=== PATIENT | female | born 1935 | race Two or more races ===

== ENCOUNTER 2016-03-03 15:51 | Inpatient (IN) | payer OTHER, MEDICARE ==
[~2016-03-03] VITALS: Ht 157.5 cm; Wt 54.4 kg
[2016-03-03] MEDS ORDERED: ENALAPRIL1.25 MG/ML IV (15:53)
[2016-03-03 16:08] VITALS: BP 196/75
[2016-03-03 16:35] LABS: MEAN CORPUSCULAR HEMOGLOBIN 30.8 PG (27.0-31.0); MEAN CORPUSCULAR HGB CONC 33.3 G/DL (32.0-36.0); MEAN CORPUSCULAR VOLUME 92 FL (80-99); MEAN PLATELET VOLUME 6.3 FL (6.5-10.1); PLATELET COUNT 328 K/UL (150-450); RED BLOOD COUNT 4.45 M/UL (4.20-5.40); RED CELL DISTRIBUTION WIDTH 11.7 % (11.6-14.8); WHITE BLOOD COUNT 18.7 K/UL (4.8-10.8)
--- NOTE | 2016-03-03 16:40 | Emergency Room Report ---
History of Present Illness General Chief Complaint: Generalized Weakness Source: Patient, Family Member, EMS Present Illness HPI Patient was brought in with complaints of fever and weakness Patient herself appears to have some rambling of thought is not able to focus and give appropriate history family reports that the patient had a 102 temperature at home Has been more weak than usual Patient was shopping with family when she felt more weak was unable to ambulate And was brought to the emergency room Here denies any chest pain or shortness of breath denies any back or flank pain And was not quite sure why she was here Given her mentation history of present illness was somewhat limited Allergies: Coded Allergies: No Known Allergies (Unverified , 03/03/16) Patient History Past Medical History: see triage record Pertinent Family History: none Reviewed Nursing Documentation: PMH: Agreed, PSxH: Agreed Nursing Documentation-PM Past Medical History: No History, Except For Hx Hypertension: Yes Review of Systems All Other Systems: negative except mentioned in HPI Physical Exam Vital Signs Date Time Temp Pulse Resp B/P Pulse Ox O2 Delivery O2 Flow Rate FiO2 03/03/16 15:49 102.0 136 18 199/102 95 Room Air Sp02 EP Interpretation: reviewed, normal General Appearance: other - Appear somewhat agitated Head: normocephalic, atraumatic Eyes: bilateral eye EOMI, bilateral eye PERRL ENT: hearing grossly normal, normal pharynx, TMs + canals normal, uvula midline Neck: full range of motion, supple, no meningismus, no bony tend Respiratory: lungs clear, normal breath sounds, no rhonchi, no respiratory distress, no retraction, no accessory muscle use Cardiovascular #1: no edema, no gallop, no JVD, no murmur, tachycardia Gastrointestinal: normal bowel sounds, non tender, soft, no mass, no organomegaly, non-distended, no guarding, no hernia, no pulsatile mass, no rebound Genitourinary: no CVA tenderness Musculoskeletal: normal inspection Neurologic: oriented x3, responsive, configuration developer III-XII nml as tested, motor strength/ tone normal, sensory intact Psychiatric: mood/affect normal Skin: normal color, no rash, warm/dry, palpation normal Lymphatic: normal inspection, no adenopathy Medical Decision Making Diagnostic Impression: Primary Impression: Sepsis Additional Impression: UTI (urinary tract infection) ER Course Patient present with concerning findings for sepsis versus severe sepsis Patient has done well has signs of UTI lactic acid was also mildly elevated Patient was provided with broad-spectrum antibiotics and admitted for further inpatient care Labs Test 03/03/16 16:00 03/03/16 16:36 03/03/16 18:02 03/04/16 06:20 White Blood Count 18.7 K/UL (4.8-10.8) 22.6 K/UL (4.8-10.8) Red Blood Count 4.45 M/UL (4.20-5.40) 4.09 M/UL (4.20-5.40) Hemoglobin 13.7 G/DL (12.0-16.0) 12.8 G/DL (12.0-16.0) Hematocrit 41.1 % (37.0-47.0) 37.8 % (37.0-47.0) Mean Corpuscular Volume 92 FL (80-99) 92 FL (80-99) Mean Corpuscular Hemoglobin 30.8 PG (27.0-31.0) 31.2 PG (27.0-31.0) Mean Corpuscular Hemoglobin Concent 33.3 G/DL (32.0-36.0) 33.7 G/DL (32.0-36.0) Red Cell Distribution Width 11.7 % (11.6-14.8) 11.8 % (11.6-14.8) Platelet Count 328 K/UL (150-450) 300 K/UL (150-450) Mean Platelet Volume 6.3 FL (6.5-10.1) 6.7 FL (6.5-10.1) Neutrophils (%) (Auto) % (45.0-75.0) % (45.0-75.0) Lymphocytes (%) (Auto) % (20.0-45.0) % (20.0-45.0) Monocytes (%) (Auto) % (1.0-10.0) % (1.0-10.0) Eosinophils (%) (Auto) % (0.0-3.0) % (0.0-3.0) Basophils (%) (Auto) % (0.0-2.0) % (0.0-2.0) Differential Total Cells Counted 100 100 Neutrophils % (Manual) 75 % (45-75) 85 % (45-75) Lymphocytes % (Manual) 10 % (20-45) 8 % (20-45) Monocytes % (Manual) 7 % (1-10) 5 % (1-10) Eosinophils % (Manual) 0 % (0-3) 0 % (0-3) Basophils % (Manual) 0 % (0-2) 0 % (0-2) Band Neutrophils 8 % (0-8) 2 % (0-8) Platelet Estimate Adequate Adequate Platelet Morphology Normal Normal Anisocytosis 1+ Prothrombin Time 10.0 SEC (9.30-11.50) Prothromb Time International Ratio 1.0 (0.9-1.1) Activated Partial Thromboplast Time 26 SEC (23-33) Sodium Level 138 mEQ/L (135-145) 143 mEQ/L (135-145) Potassium Level 3.8 mEQ/L (3.4-4.9) 4.4 mEQ/L (3.4-4.9) Chloride Level 97 mEQ/L (98-107) 104 mEQ/L (98-107) Carbon Dioxide Level 25 mEQ/L (20-30) 25 mEQ/L (20-30) Anion Gap 16 (5-15) 14 (5-15) Blood Urea Nitrogen 14 mg/dL (7-23) 15 mg/dL (7-23) Creatinine 0.6 mg/dL (0.5-0.9) 0.7 mg/dL (0.5-0.9) Estimat Glomerular Filtration Rate mL/min (>60) mL/min (>60) Glucose Level 101 mg/dL (74-106) 133 mg/dL (74-106) Lactic Acid Level 2.30 mmol/L (0.66-2.22) 2.30 mmol/L (0.66-2.22) Calcium Level 9.1 mg/dL (8.6-10.2) 8.4 mg/dL (8.6-10.2) Phosphorus Level 2.0 mg/dL (2.5-4.8) Magnesium Level 1.7 mg/dL (1.7-2.5) Total Bilirubin 0.2 mg/dL (0.0-1.2) 0.4 mg/dL (0.0-1.2) Aspartate Amino Transf (AST/SGOT) 14 U/L (5-40) 16 U/L (5-40) Alanine Aminotransferase (ALT/SGPT) 9 U/L (3-33) 6 U/L (3-33) Alkaline Phosphatase 103 U/L (35-104) 81 U/L (35-104) Total Creatine Kinase 172 U/L (26-140) Creatine Kinase MB < 1.5 ng/mL (< 3.8) Creatine Kinase MB Relative Index Troponin I < 0.30 ng/mL (<=0.30) Pro-B-Type Natriuretic Peptide 630 pg/mL (0-450) Total Protein 7.2 g/dL (6.6-8.7) 5.8 g/dL (6.6-8.7) Albumin 4.0 g/dL (3.5-5.2) 3.0 g/dL (3.5-5.2) Globulin 3.2 g/dL 2.8 g/dL Albumin/Globulin Ratio 1.2 (1.0-2.7) 1.0 (1.0-2.7) Lipase 32 U/L (< 60) Urine Color Pale yellow Urine Appearance Clear Urine pH 6 (4.5-8.0) Urine Specific [place] 1.010 (1.005-1.035) Urine Protein 2+ (NEGATIVE) Urine Glucose (UA) Negative (NEGATIVE) Urine Ketones Negative (NEGATIVE) Urine Occult Blood 1+ (NEGATIVE) Urine Nitrite Positive (NEGATIVE) Urine Bilirubin Negative (NEGATIVE) Urine Urobilinogen Normal MG/DL (0.0-1.0) Urine Leukocyte Esterase 1+ (NEGATIVE) Urine RBC 2-4 /HPF (0 - 2) Urine WBC 5-10 /HPF (0 - 2) Urine Squamous Epithelial Cells Few /LPF (NONE/OCC) Urine Bacteria Many /HPF (NONE) Red Blood Cell Morphology Normal Rhythm Strip Diag. Results EP Interpretation: yes Rate: 109 Rhythm: no PVC's, no ectopy, other - sinus tach Chest X-Ray Diagnostic Results EP Interpretation: Yes Findings: no pneumothorax, other - Small right-sided effusion/atelectasis, borderline cardiomegaly Number of Views: 1 Last Vital Signs Date Time Temp Pulse Resp B/P Pulse Ox O2 Delivery O2 Flow Rate FiO2 03/03/16 16:08 101.1 122 26 196/75 97 Room Air Status: improved Disposition: ADMITTED INPATIENT Condition: Serious SHONA FELTON D.O. Mar 03, 2016 16:40
[2016-03-03 16:58] LABS: APPEARANCE,URINE CLEAR; KETONES,URINE NEGATIVE (NEGATIVE); LEUKOCYTE ESTERASE ,URINE 1+ (NEGATIVE); NITRITE,URINE POSITIVE (NEGATIVE); PH,URINE 6 (4.5-8.0); PROTEIN,URINE 2+ (NEGATIVE); UROBILINOGEN,URINE NORMAL MG/DL (0.0-1.0)
[2016-03-03 17:02] LABS: BACTERIA,URINE MANY /HPF; SQUAMOUS EPITHELIAL CELL,UR FEW /LPF (NONE/OCC)
[2016-03-03 17:03] LABS: TROPONIN I < 0.30 ng/mL (<=0.30)
[2016-03-03 17:07] LABS: ALANINE AMINOTRANSFERASE 9 U/L (3-33); ALBUMIN/GLOBULIN RATIO 1.2 (1.0-2.7); ANION GAP 16 (5-15); ASPARTATE AMINO TRANSFERASE 14 U/L (5-40); CALCIUM 9.1 mg/dL (8.6-10.2); CARBON DIOXIDE 25 mEQ/L (20-30); CHLORIDE 97 mEQ/L (98-107); CREATININE 0.6 mg/dL (0.5-0.9); HEMOLYSIS 4; LIPASE 32 U/L (< 60); MAGNESIUM 1.7 mg/dL (1.7-2.5); POTASSIUM 3.8 mEQ/L (3.4-4.9); SODIUM 138 mEQ/L (135-145); TOTAL PROTEIN 7.2 g/dL (6.6-8.7)
[2016-03-03 17:10] LABS: REFLEX LACTIC ACID YES OR NO YES
[2016-03-03 17:17] LABS: CKMB < 1.5 ng/mL (< 3.8)
[2016-03-03 17:37] LABS: BAND NEUTROPHILS % (MANUAL) 8 % (0-8); LYMPHOCYTES % (MANUAL) 10 % (20-45); NEUTROPHILS % (MANUAL) 75 % (45-75); TOTAL CELLS COUNTED 100
[2016-03-03 17:38] LABS: ANISOCYTOSIS 1+; BASOPHILS % (MANUAL) 0 % (0-2); EOSINOPHILS % (MANUAL) 0 % (0-3); PLATELET ESTIMATE ADEQUATE; PLATELET MORPHOLOGY NORMAL
[2016-03-03 18:00] VITALS: BP 138/51
[2016-03-03] MEDS ORDERED: Morphine Sulfate 2mg/ml Inj IVP PRN (18:00)
[2016-03-03] MEDS ORDERED: DuoNeb 0.5-3(2.5)mg/3ml neb HHN PRN (18:00)
[2016-03-03] MEDS ORDERED: Miralax 17gm pkt ORAL PRN (18:00)
--- NOTE | 2016-03-03 18:02 | History and Physical ---
History of Present Illness General Date patient seen: Mar 03, 2016 Reason for Hospitalization: Generalized Weakness Present Illness HPI 8 year old with hx of Dementia and HTN brought in by paramedics with complaints of fever and weakness Patient herself appears to be confused and not able to focus and give appropriate history. Patient daughter reported that the patient had a 102 temperature at home She has been more weak than usual. Patient was shopping with family when she felt more weak was unable to ambulate She was febrile and tachycardic and confused in ER. She is being admitted to Telemetry for further evaluation Allergies: Coded Allergies: No Known Allergies (Unverified , 03/03/16) Medication History Scheduled Enalaprilat* (Enalapril*), Unknown Dose IV EVERY 6 HOURS, (Reported) Patient History Healthcare decision maker Resuscitation status Advanced Directive on File Past Medical/Surgical History Past Medical/Surgical History: (1) HTN (hypertension) (2) Dementia Review of Systems All Other Systems: negative except mentioned in HPI Physical Exam Lines, tubes and drains: peripheral HEENT: normocephalic, atraumatic Neck: non-tender, normal alignment Cardiovascular/Chest: normal peripheral pulses, normal rate Abdomen: normal bowel sounds Genitourinary/Rectal: normal genital exam, normal rectal exam Extremities: normal range of motion, non-tender Neurologic: sand bobber II-XII grossly normal Last 24 Hour Vital Signs Date Time Temp Pulse Resp B/P Pulse Ox O2 Delivery O2 Flow Rate FiO2 03/03/16 16:08 101.1 122 26 196/75 97 Room Air 03/03/16 15:49 102.0 136 18 199/102 95 Room Air Laboratory Tests Test 03/03/16 16:00 03/03/16 16:36 White Blood Count 18.7 K/UL (4.8-10.8) H Red Blood Count 4.45 M/UL (4.20-5.40) Hemoglobin 13.7 G/DL (12.0-16.0) Hematocrit 41.1 % (37.0-47.0) Mean Corpuscular Volume 92 FL (80-99) Mean Corpuscular Hemoglobin 30.8 PG (27.0-31.0) Mean Corpuscular Hemoglobin Concent 33.3 G/DL (32.0-36.0) Red Cell Distribution Width 11.7 % (11.6-14.8) Platelet Count 328 K/UL (150-450) Mean Platelet Volume 6.3 FL (6.5-10.1) L Neutrophils (%) (Auto) % (45.0-75.0) Lymphocytes (%) (Auto) % (20.0-45.0) Monocytes (%) (Auto) % (1.0-10.0) Eosinophils (%) (Auto) % (0.0-3.0) Basophils (%) (Auto) % (0.0-2.0) Differential Total Cells Counted 100 Neutrophils % (Manual) 75 % (45-75) Lymphocytes % (Manual) 10 % (20-45) L Monocytes % (Manual) 7 % (1-10) Eosinophils % (Manual) 0 % (0-3) Basophils % (Manual) 0 % (0-2) Band Neutrophils 8 % (0-8) Platelet Estimate Adequate Platelet Morphology Normal Anisocytosis 1+ Prothrombin Time 10.0 SEC (9.30-11.50) Prothromb Time International Ratio 1.0 (0.9-1.1) Activated Partial Thromboplast Time 26 SEC (23-33) Sodium Level 138 mEQ/L (135-145) Potassium Level 3.8 mEQ/L (3.4-4.9) Chloride Level 97 mEQ/L (98-107) L Carbon Dioxide Level 25 mEQ/L (20-30) Anion Gap 16 (5-15) H Blood Urea Nitrogen 14 mg/dL (7-23) Creatinine 0.6 mg/dL (0.5-0.9) Estimat Glomerular Filtration Rate mL/min (>60) Glucose Level 101 mg/dL (74-106) Lactic Acid Level 2.30 mmol/L (0.66-2.22) H Calcium Level 9.1 mg/dL (8.6-10.2) Phosphorus Level 2.0 mg/dL (2.5-4.8) L Magnesium Level 1.7 mg/dL (1.7-2.5) Total Bilirubin 0.2 mg/dL (0.0-1.2) Aspartate Amino Transf (AST/SGOT) 14 U/L (5-40) Alanine Aminotransferase (ALT/SGPT) 9 U/L (3-33) Alkaline Phosphatase 103 U/L (35-104) Total Creatine Kinase 172 U/L (26-140) H Creatine Kinase MB < 1.5 ng/mL (< 3.8) Creatine Kinase MB Relative Index Troponin I < 0.30 ng/mL (<=0.30) Pro-B-Type Natriuretic Peptide 630 pg/mL (0-450) H Total Protein 7.2 g/dL (6.6-8.7) Albumin 4.0 g/dL (3.5-5.2) Globulin 3.2 g/dL Albumin/Globulin Ratio 1.2 (1.0-2.7) Lipase 32 U/L (< 60) Urine Color Pale yellow Urine Appearance Clear Urine pH 6 (4.5-8.0) Urine Specific [place] 1.010 (1.005-1.035) Urine Protein 2+ (NEGATIVE) H Urine Glucose (UA) Negative (NEGATIVE) Urine Ketones Negative (NEGATIVE) Urine Occult Blood 1+ (NEGATIVE) H Urine Nitrite Positive (NEGATIVE) H Urine Bilirubin Negative (NEGATIVE) Urine Urobilinogen Normal MG/DL (0.0-1.0) Urine Leukocyte Esterase 1+ (NEGATIVE) H Urine RBC 2-4 /HPF (0 - 2) H Urine WBC 5-10 /HPF (0 - 2) H Urine Squamous Epithelial Cells Few /LPF (NONE/OCC) Urine Bacteria Many /HPF (NONE) H Height (Feet): 5 Height (Inches): 2.00 Weight (Pounds): 120 Medications Current Medications Medications (Trade) Dose Ordered Sig/Марина Route PRN Reason Start Time Stop Time Status Last Admin Dose Admin Ceftriaxone Sodium 1 gm/ Sodium Chloride 50 ml @ 100 mls/hr ONCE ONCE IVPB 03/03/16 17:45 03/03/16 18:14 03/03/16 17:54 Sodium Chloride (Sodium Chloride 1000ml bag) 1,000 ml @ 999 mls/hr Q1H1M ONCE IV 03/03/16 17:45 03/03/16 18:45 03/03/16 17:53 Assessment/Plan Problem List: (1) Acute encephalopathy ICD Codes: G93.40 - Encephalopathy, unspecified SNOMED: 5736935 (2) Sepsis ICD Codes: A41.9 - Sepsis, unspecified organism SNOMED: 85121638 (3) Episode of generalized weakness ICD Codes: R53.1 - Weakness SNOMED: 00016485 (4) HTN (hypertension) ICD Codes: I10 - Essential (primary) hypertension SNOMED: 70043387 (5) Dementia ICD Codes: F03.90 - Unspecified dementia without behavioral disturbance SNOMED: 23107845 Assessment/Plan IV antibiotics IV hydration check cultures tachycardia most likely secondary to fever and sepsis dvt prophylaxis monitor bp EDISON RAMIREZ Mar 03, 2016 18:02
[2016-03-03] MEDS ORDERED: Nitroglycerin Subl 0.4mg tab (Bottle Of 25) SL PRN (18:30)
[2016-03-03 20:06] VITALS: BP 132/60
[2016-03-03] MEDS: Heparin 5000 units/ml inj SUBQ SCH (21:50)
[2016-03-03] MEDS ORDERED: Vancomycin 750 MG in D5W 250 ML IVPB SCH (22:00)
[2016-03-04] VITALS (11 sets, daily range): BP systolic 91–153; BP diastolic 38–73
[2016-03-04 07:07] LABS: MEAN CORPUSCULAR HEMOGLOBIN 31.2 PG (27.0-31.0); MEAN CORPUSCULAR HGB CONC 33.7 G/DL (32.0-36.0); MEAN CORPUSCULAR VOLUME 92 FL (80-99); MEAN PLATELET VOLUME 6.7 FL (6.5-10.1); PLATELET COUNT 300 K/UL (150-450); RED BLOOD COUNT 4.09 M/UL (4.20-5.40); RED CELL DISTRIBUTION WIDTH 11.8 % (11.6-14.8)
[2016-03-04 07:10] LABS: WHITE BLOOD COUNT 22.6 K/UL (4.8-10.8)
[2016-03-04 07:16] LABS: ALANINE AMINOTRANSFERASE 6 U/L (3-33); ANION GAP 14 (5-15); ASPARTATE AMINO TRANSFERASE 16 U/L (5-40); CALCIUM 8.4 mg/dL (8.6-10.2); CARBON DIOXIDE 25 mEQ/L (20-30); CHLORIDE 104 mEQ/L (98-107); CREATININE 0.7 mg/dL (0.5-0.9); HEMOLYSIS 2; POTASSIUM 4.4 mEQ/L (3.4-4.9); SODIUM 143 mEQ/L (135-145); TOTAL PROTEIN 5.8 g/dL (6.6-8.7)
[2016-03-04] MEDS: Heparin 5000 units/ml inj SUBQ SCH ×2 (08:52→20:39)
[2016-03-04 10:05] LABS: BAND NEUTROPHILS % (MANUAL) 2 % (0-8); BASOPHILS % (MANUAL) 0 % (0-2); EOSINOPHILS % (MANUAL) 0 % (0-3); LYMPHOCYTES % (MANUAL) 8 % (20-45); NEUTROPHILS % (MANUAL) 85 % (45-75); PLATELET ESTIMATE ADEQUATE; PLATELET MORPHOLOGY NORMAL; TOTAL CELLS COUNTED 100
--- NOTE | 2016-03-04 10:21 | Diagnostic Imaging Report ---
Indication: DYSPNEA Technique: One view of the chest Comparison: 03/03/2016 Findings: There is increasing consolidation at the right lateral lung base. There may be a small amount of pleural fluid now present on the right. The remainder the lungs and pleural spaces are clear. Heart size is normal. Impression: Increasing right lateral basilar infiltrate, over one day, suspect pneumonia Possible developing small right pleural effusion
--- NOTE | 2016-03-04 12:28 | Pulmonology Progress Note ---
Assessment/Plan Problems: (1) Sepsis (2) Acute encephalopathy (3) Episode of generalized weakness (4) HTN (hypertension) (5) Dementia Assessment/Plan improving check GNR in urine monitor electrolytes dvt prophylaxis ID evaluaiton Subjective ROS Limited/Unobtainable: No Constitutional: Reports: no symptoms HEENT: Repors: no symptoms Respiratory: Reports: no symptoms Cardiovascular: Reports: no symptoms Allergies: Coded Allergies: No Known Allergies (Unverified , 03/03/16) Objective Last 24 Hour Vital Signs Date Time Temp Pulse Resp B/P Pulse Ox O2 Delivery O2 Flow Rate FiO2 03/04/16 11:55 97.3 75 18 106/57 100 Room Air 03/04/16 08:00 97.7 74 18 96/57 100 Nasal Cannula 2.0 03/04/16 08:00 74 03/04/16 06:32 97.7 81 20 107/55 Nasal Cannula 2.0 03/04/16 03:22 109 122/48 03/04/16 03:22 100.2 109 20 94 Nasal Cannula 2.0 03/04/16 01:51 120 20 94/38 94 03/04/16 00:44 126 20 91/40 94 03/04/16 00:43 126 20 91/40 03/04/16 00:36 98.2 140 22 148/71 94 Nasal Cannula 03/04/16 00:23 133 03/03/16 23:48 142 20 94 Nasal Cannula 3.0 32 03/03/16 23:41 60 22 Nasal Cannula 3.0 03/03/16 23:41 Nasal Cannula 3.0 32 03/03/16 23:41 60 22 92 Nasal Cannula 3.0 32 03/03/16 23:41 92 Nasal Cannula 3.0 32 03/03/16 22:53 81 03/03/16 20:20 98.3 03/03/16 20:15 99.5 03/03/16 20:07 99.5 105 17 132/60 98 Room Air 03/03/16 20:06 99.5 105 17 132/60 98 Room Air 03/03/16 20:00 103 03/03/16 18:00 101.1 115 24 138/51 97 Room Air 03/03/16 16:08 101.1 122 26 196/75 97 Room Air 03/03/16 15:49 102.0 136 18 199/102 95 Room Air Intake and Output 03/03/16 03/04/16 19:00 07:00 Intake Total 300 ml Output Total 100 ml Balance 200 ml Intake Oral 200 ml IV Total 100 ml Output Urine Total 100 ml # Voids 3 # Bowel Movements 1 General Appearance: cachetic HEENT: normocephalic, atraumatic Respiratory/Chest: chest wall non-tender, lungs clear Cardiovascular: normal peripheral pulses, normal rate Abdomen: normal bowel sounds, soft, non tender Genitourinary: normal external genitalia Extremities: no cyanosis Skin: no rash, no lesions Microbiology Date/Time Source Procedure Growth Status 03/03/16 16:36 Urine,Clean Catch Urine Culture - Preliminary Gram Negative Bacillus 1 Resulted Laboratory Tests 03/03/16 16:00: White Blood Count 18.7H, Red Blood Count 4.45, Hemoglobin 13.7, Hematocrit 41.1 , Mean Corpuscular Volume 92, Mean Corpuscular Hemoglobin 30.8, Mean Corpuscular Hemoglobin Concent 33.3, Red Cell Distribution Width 11.7, Platelet Count 328, Mean Platelet Volume 6.3L, Neutrophils (%) (Auto) , Lymphocytes (%) ( Auto) , Monocytes (%) (Auto) , Eosinophils (%) (Auto) , Basophils (%) (Auto) , Differential Total Cells Counted 100, Neutrophils % (Manual) 75, Lymphocytes % ( Manual) 10L, Monocytes % (Manual) 7, Eosinophils % (Manual) 0, Basophils % ( Manual) 0, Band Neutrophils 8, Platelet Estimate Adequate, Platelet Morphology Normal, Anisocytosis 1+, Prothrombin Time 10.0, Prothromb Time International Ratio 1.0, Activated Partial Thromboplast Time 26, Sodium Level 138, Potassium Level 3.8, Chloride Level 97L, Carbon Dioxide Level 25, Anion Gap 16H, Blood Urea Nitrogen 14, Creatinine 0.6, Estimat Glomerular Filtration Rate , Glucose Level 101, Lactic Acid Level 2.30H, Calcium Level 9.1, Phosphorus Level 2.0L, Magnesium Level 1.7, Total Bilirubin 0.2, Aspartate Amino Transf (AST/SGOT) 14, Alanine Aminotransferase (ALT/SGPT) 9, Alkaline Phosphatase 103, Total Creatine Kinase 172H, Creatine Kinase MB < 1.5, Creatine Kinase MB Relative Index , Troponin I < 0.30, Pro-B-Type Natriuretic Peptide 630H, Total Protein 7.2, Albumin 4.0, Globulin 3.2, Albumin/Globulin Ratio 1.2, Lipase 32 03/03/16 16:36: Urine Color Pale yellow, Urine Appearance Clear, Urine pH 6, Urine Specific [place] 1.010, Urine Protein 2+H, Urine Glucose (UA) Negative, Urine Ketones Negative, Urine Occult Blood 1+H, Urine Nitrite PositiveH, Urine Bilirubin Negative, Urine Urobilinogen Normal, Urine Leukocyte Esterase 1+H, Urine RBC 2- 4H, Urine WBC 5-10H, Urine Squamous Epithelial Cells Few, Urine Bacteria ManyH 03/03/16 18:02: Lactic Acid Level 2.30H 03/04/16 06:20: White Blood Count 22.6*H, Red Blood Count 4.09L, Hemoglobin 12.8, Hematocrit 37.8, Mean Corpuscular Volume 92, Mean Corpuscular Hemoglobin 31.2H, Mean Corpuscular Hemoglobin Concent 33.7, Red Cell Distribution Width 11.8, Platelet Count 300, Mean Platelet Volume 6.7, Neutrophils (%) (Auto) , Lymphocytes (%) ( Auto) , Monocytes (%) (Auto) , Eosinophils (%) (Auto) , Basophils (%) (Auto) , Differential Total Cells Counted 100, Neutrophils % (Manual) 85H, Lymphocytes % (Manual) 8L, Monocytes % (Manual) 5, Eosinophils % (Manual) 0, Basophils % ( Manual) 0, Band Neutrophils 2, Platelet Estimate Adequate, Platelet Morphology Normal, Sodium Level 143, Potassium Level 4.4, Chloride Level 104, Carbon Dioxide Level 25, Anion Gap 14, Blood Urea Nitrogen 15, Creatinine 0.7, Estimat Glomerular Filtration Rate , Glucose Level 133H, Calcium Level 8.4L, Total Bilirubin 0.4, Aspartate Amino Transf (AST/SGOT) 16, Alanine Aminotransferase ( ALT/SGPT) 6, Alkaline Phosphatase 81, Total Protein 5.8L, Albumin 3.0L, Globulin 2.8, Albumin/Globulin Ratio 1.0, Red Blood Cell Morphology Normal Current Medications Medications (Trade) Dose Ordered Sig/Марина Route PRN Reason Start Time Stop Time Status Last Admin Dose Admin Acetaminophen (Tylenol) 650 mg Q4H PRN ORAL T>100.5 03/03/16 18:00 04/02/16 17:59 03/03/16 19:16 Albuterol/ Ipratropium 3 ml 3 ml Q4H PRN HHN Shortness of Breath 03/03/16 18:00 03/08/16 17:59 03/03/16 23:40 Cefepime HCl 2 gm/ Sodium Chloride 100 ml @ 100 mls/hr QHS IV 03/03/16 21:00 03/10/16 20:59 03/03/16 21:49 Heparin Sodium (Porcine) (Heparin 5000 units/ml) 5,000 units EVERY 12 HOURS SUBQ 03/03/16 21:00 04/02/16 20:59 03/04/16 08:52 Morphine Sulfate (Morphine Sulfate) 2 mg Q4H PRN IVP Moderate Pain (Pain Scale 4-6) 03/03/16 18:00 03/10/16 17:59 Nitroglycerin (Ntg) 0.4 mg Q5MIN X 3 DOSES PRN SL Prn Chest Pain 03/03/16 18:30 04/02/16 18:29 Ondansetron HCl (Zofran) 4 mg Q6H PRN IVP Nausea & Vomiting 03/03/16 18:00 04/02/16 17:59 Polyethylene Glycol (Miralax) 17 gm DAILYPRN PRN ORAL Constipation 03/03/16 18:00 04/02/16 17:59 Temazepam (Restoril) 15 mg HSPRN PRN ORAL Insomnia 03/03/16 21:00 03/10/16 20:59 Vancomycin HCl (Vanco rx to dose) 1 ea DAILY PRN MISC . 03/03/16 19:00 04/02/16 18:59 Vancomycin HCl/ Dextrose (Vancomycin/D5W 250ml) 250 ml @ 167 mls/hr Q24H IVPB 03/03/16 22:00 03/08/16 21:59 03/04/16 00:07 EDISON RAMIREZ Mar 04, 2016 12:28
--- NOTE | 2016-03-04 13:14 | Consultation ---
Consult Note Consult Note ( ID Dic # [id number]) CESAR BAIELY M.D. Mar 04, 2016 13:14
[2016-03-04] MEDS ORDERED: Nitroglycerin Subl 0.4mg tab (Bottle Of 25) SL PRN (14:00)
[2016-03-04] MEDS ORDERED: DuoNeb 0.5-3(2.5)mg/3ml neb HHN PRN (14:00)
[2016-03-04] MEDS ORDERED: Morphine Sulfate 2mg/ml Inj IVP PRN (14:00)
[2016-03-04] MEDS ORDERED: Miralax 17gm pkt ORAL PRN (18:00)
[2016-03-04] MEDS ORDERED: Vancomycin 750 MG in D5W 250 ML IVPB SCH (22:00)
--- NOTE | 2016-03-05 00:18 | Consultation ---
DATE OF CONSULTATION: INFECTIOUS DISEASE CONSULTATION CONSULTING PHYSICIAN: Jesse Marx M.D. REFERRING PHYSICIAN: Yina Huddleston M.D. REASON FOR CONSULTATION: Evaluation of the patient for sepsis, bacteremia and antibiotic management. HISTORY OF PRESENT ILLNESS: The patient is an 80-year-old female with multiple medical problems, dementia, and hypertension, who came to the hospital because of fever and general weakness. An Infectious Disease consultation has been requested for further evaluation of the patient. At the time of admission, the patient was found to have fever of 102 degrees and now the patient's urine culture is growing gram-negative rods. An Infectious Disease consultation has been requested for further evaluation of the patient and antibiotic management. PAST MEDICAL HISTORY: 1. Hypertension. 2. Dementia. 3. Hearing loss. 4. History of chronic constipation. MEDICATIONS: Vancomycin and cefepime. ALLERGIES: No known drug allergies. SOCIAL HISTORY: No history of alcohol, drug abuse, or smoking. FAMILY HISTORY: Noncontributory. REVIEW OF SYSTEMS: Limited. Much of the information I was able to gather as mentioned above.Pulmonary: No cough or shortness of breath. Cardiovascular: No chest pain. No palpitations. Gastrointestinal/Abdomen: No nausea or vomiting. Genitourinary: No gross dysuria. PHYSICAL EXAMINATION: VITAL SIGNS: Temperature 97.2 degrees, blood pressure 106/67, pulse 75, respiratory rate 18, and temperature 102 degrees. HEENT: No pale conjunctivae. No icterus. NECK: No lymphadenopathy. CHEST: Coarse breathing sounds. HEART: S1 and S2. ABDOMEN: Soft and nontender. EXTREMITIES: No cyanosis. NEUROLOGIC: Awake. LABORATORY DATA: White blood cells 22.6, hemoglobin 12, and platelets 300,000. UA, 5 to 10 white blood cells and 2 to 3 red blood cells. BUN 16 and creatinine 0.8. ALT, AST, and alkaline phosphatase are within normal range. Urine culture is growing gram-negative rods. Chest x-ray, right lateral basilar infiltrates suggestive of pneumonia. ASSESSMENT: The patient is an 80-year-old female with multiple medical problems, who came to the hospital with generalized weakness. The patient does not have cough to suggest pneumonia. The patient's urine shows gram-negative rods. It is important to rule out possibility of bacteremia also with blood culture. At this time, the patient would benefit with gram-negative coverage and gram-positive cover such as staph. PLAN: 1. We will continue the patient on cefepime. Discontinue vancomycin. 2. Monitor CBC. 3. Monitor BMP. 4. Ultrasound of the abdomen. 5. Monitor cultures (blood and urine). Based on the patient's clinical course and laboratories, we will do further recommendations. Thank you, Dr. Huddleston, for allowing me to participate in the care of this patient. I will follow the patient with you during this hospitalization. Jesse Marx M.D. DR: MEHRAN JOB#: [id number] CC:
[2016-03-05 01:02] VITALS: BP 152/61
[2016-03-05 04:21] VITALS: BP 121/52
[2016-03-05 08:08] LABS: BASOPHILS % (AUTO) 0.6 % (0.0-2.0); EOSINOPHILS % (AUTO) 0.1 % (0.0-3.0); LYMPHOCYTES % (AUTO) 18.7 % (20.0-45.0); MEAN CORPUSCULAR HEMOGLOBIN 31.2 PG (27.0-31.0); MEAN CORPUSCULAR HGB CONC 33.7 G/DL (32.0-36.0); MEAN CORPUSCULAR VOLUME 92 FL (80-99); MEAN PLATELET VOLUME 7.4 FL (6.5-10.1); MONOCYTES % (AUTO) 9.4 % (1.0-10.0); NEUTROPHILS % (AUTO) 71.2 % (45.0-75.0); PLATELET COUNT 267 K/UL (150-450); RED BLOOD COUNT 3.72 M/UL (4.20-5.40); RED CELL DISTRIBUTION WIDTH 11.8 % (11.6-14.8); WHITE BLOOD COUNT 17.3 K/UL (4.8-10.8)
[2016-03-05 08:18] LABS: ALANINE AMINOTRANSFERASE 6 U/L (3-33); ANION GAP 12 (5-15); ASPARTATE AMINO TRANSFERASE 14 U/L (5-40); CALCIUM 8.3 mg/dL (8.6-10.2); CARBON DIOXIDE 26 mEQ/L (20-30); CHLORIDE 103 mEQ/L (98-107); CREATININE 0.5 mg/dL (0.5-0.9); HEMOLYSIS 3; PHOSPHORUS 2.7 mg/dL (2.5-4.8); POTASSIUM 3.9 mEQ/L (3.4-4.9); SODIUM 141 mEQ/L (135-145); TOTAL PROTEIN 5.7 g/dL (6.6-8.7)
[2016-03-05 08:24] VITALS: BP 140/67
[2016-03-05] MEDS: Heparin 5000 units/ml inj SUBQ SCH ×2 (08:43→20:36)
--- NOTE | 2016-03-05 10:03 | Infectious Diseases Prog Note ---
Assessment/Plan Assessment/Plan A: The patient is an 80-year-old female Leukocytosis , improving Sepsis improving Fever UTI Ucx : GNR + E Coli Probable Pna Chest : x-ray, right lateral basilar infiltrates suggestive of pneumonia HTN Dementia Hearing loss. History of chronic constipation. PLAN: Cont on cefepime d# 2 DC vancomycin d# 2 Monitor CBC. Monitor BMP. Ultrasound of the abdomen. Monitor cultures (blood and urine) Subjective Constitutional: Denies: anorexia, chills, drenching sweats, fatigue, fever, no symptoms, other Allergies: Coded Allergies: VANCOMYCIN (Verified Adverse Reaction, Unknown, Tachycardia/chest pain/SOB , 03/05/16) Objective Vital Signs Last 24 Hour Vital Signs Date Time Temp Pulse Resp B/P Pulse Ox O2 Delivery O2 Flow Rate FiO2 03/05/16 08:24 98.6 78 20 140/67 93 Room Air 03/05/16 07:50 Nasal Cannula 2.0 03/05/16 07:49 96 Nasal Cannula 2.0 03/05/16 04:21 99.7 82 20 121/52 97 Nasal Cannula 2.0 03/05/16 01:02 97.6 108 17 152/61 92 Nasal Cannula 5.0 03/04/16 19:37 Nasal Cannula 2.0 28 03/04/16 19:00 98.1 84 20 153/73 97 Nasal Cannula 2.0 03/04/16 16:00 98.2 79 20 142/70 96 Nasal Cannula 2.0 03/04/16 14:04 98.2 76 15 129/60 98 Room Air 03/04/16 11:55 97.3 75 18 106/57 100 Room Air Height (Feet): 5 Height (Inches): 2.00 Weight (Pounds): 120 HEENT: atraumatic Respiratory/Chest: lungs clear Cardiovascular: normal rate Abdomen: soft, non tender Microbiology Date/Time Source Procedure Growth Status 03/03/16 16:10 Blood Blood Culture - Preliminary NO GROWTH AFTER 24 HOURS Resulted 03/03/16 15:55 Blood Blood Culture - Preliminary NO GROWTH AFTER 24 HOURS Resulted 03/03/16 16:36 Urine,Clean Catch Urine Culture - Preliminary Gram Negative Bacillus 1 Resulted Laboratory Tests Test 03/05/16 07:05 White Blood Count 17.3 K/UL (4.8-10.8) H Red Blood Count 3.72 M/UL (4.20-5.40) L Hemoglobin 11.6 G/DL (12.0-16.0) L Hematocrit 34.4 % (37.0-47.0) L Mean Corpuscular Volume 92 FL (80-99) Mean Corpuscular Hemoglobin 31.2 PG (27.0-31.0) H Mean Corpuscular Hemoglobin Concent 33.7 G/DL (32.0-36.0) Red Cell Distribution Width 11.8 % (11.6-14.8) Platelet Count 267 K/UL (150-450) Mean Platelet Volume 7.4 FL (6.5-10.1) Neutrophils (%) (Auto) 71.2 % (45.0-75.0) Lymphocytes (%) (Auto) 18.7 % (20.0-45.0) L Monocytes (%) (Auto) 9.4 % (1.0-10.0) Eosinophils (%) (Auto) 0.1 % (0.0-3.0) Basophils (%) (Auto) 0.6 % (0.0-2.0) Sodium Level 141 mEQ/L (135-145) Potassium Level 3.9 mEQ/L (3.4-4.9) Chloride Level 103 mEQ/L (98-107) Carbon Dioxide Level 26 mEQ/L (20-30) Anion Gap 12 (5-15) Blood Urea Nitrogen 10 mg/dL (7-23) Creatinine 0.5 mg/dL (0.5-0.9) Estimat Glomerular Filtration Rate mL/min (>60) Glucose Level 100 mg/dL (74-106) Calcium Level 8.3 mg/dL (8.6-10.2) L Phosphorus Level 2.7 mg/dL (2.5-4.8) Magnesium Level 2.0 mg/dL (1.7-2.5) Total Bilirubin 0.5 mg/dL (0.0-1.2) Aspartate Amino Transf (AST/SGOT) 14 U/L (5-40) Alanine Aminotransferase (ALT/SGPT) 6 U/L (3-33) Alkaline Phosphatase 72 U/L (35-104) Total Protein 5.7 g/dL (6.6-8.7) L Albumin 2.9 g/dL (3.5-5.2) L Globulin 2.8 g/dL Albumin/Globulin Ratio 1.0 (1.0-2.7) Current Medications Medications (Trade) Dose Ordered Sig/Марина Route PRN Reason Start Time Stop Time Status Last Admin Dose Admin Acetaminophen (Tylenol) 650 mg Q4H PRN ORAL T>100.5 03/04/16 14:00 04/03/16 13:59 Albuterol/ Ipratropium (DuoNeb 0.5-3(2.5)mg/3ml) 3 ml Q4H PRN HHN Shortness of Breath 03/04/16 14:00 03/09/16 13:59 Cefepime HCl/ Sodium Chloride (Maxipime/Sodium Chloride 100ml bag) 100 ml @ 100 mls/hr QHS IV 03/04/16 21:00 03/11/16 20:59 03/04/16 20:36 Heparin Sodium (Porcine) (Heparin 5000 units/ml) 5,000 units EVERY 12 HOURS SUBQ 03/04/16 21:00 04/03/16 20:59 03/05/16 08:43 Morphine Sulfate (Morphine Sulfate) 2 mg Q4H PRN IVP Moderate Pain (Pain Scale 4-6) 03/04/16 14:00 03/11/16 13:59 Nitroglycerin (Ntg) 0.4 mg Q5MIN X 3 DOSES PRN SL Prn Chest Pain 03/04/16 14:00 04/03/16 13:59 Ondansetron HCl (Zofran) 4 mg Q6H PRN IVP Nausea & Vomiting 03/04/16 18:00 04/03/16 17:59 Polyethylene Glycol (Miralax) 17 gm DAILYPRN PRN ORAL Constipation 03/04/16 18:00 04/03/16 17:59 Temazepam (Restoril) 15 mg HSPRN PRN ORAL Insomnia 03/04/16 21:00 03/11/16 20:59 Vancomycin HCl (Vanco rx to dose) 1 ea DAILY PRN MISC . 03/05/16 09:00 04/04/16 08:59 CESAR BAILEY M.D. Mar 05, 2016 10:03
[2016-03-05 12:15] VITALS: BP 139/78
[2016-03-05] MEDS ORDERED: NS 275ml ONE (13:24)
--- NOTE | 2016-03-05 13:58 | Cardiology Report ---
APPROVED REPORT EKG Measurement Heart [id number] Normal sinus rhythm Nonspecific intraventricular block Cannot rule out Anterior infarct, age undetermined T wave abnormality, consider inferolateral ischemia Abnormal ECG
[2016-03-05 16:43] VITALS: BP 169/80
--- NOTE | 2016-03-05 17:22 | Pulmonology Progress Note ---
Assessment/Plan Problems: (1) Sepsis (2) Acute encephalopathy (3) Episode of generalized weakness (4) Pneumonia (5) Dementia (6) HTN (hypertension) Assessment/Plan improving check GNR in urine, sensitivity available monitor electrolytes dvt prophylaxis ID evaluaiton appreciated cxr reviewed, RLL infiltrate start pt/ot Subjective ROS Limited/Unobtainable: No Interval Events: doing better, still feeling weak Allergies: Coded Allergies: VANCOMYCIN (Verified Adverse Reaction, Unknown, Tachycardia/chest pain/SOB , 03/05/16) Objective Last 24 Hour Vital Signs Date Time Temp Pulse Resp B/P Pulse Ox O2 Delivery O2 Flow Rate FiO2 03/05/16 16:43 98.2 89 20 169/80 97 Room Air 2.0 03/05/16 12:15 97.9 80 19 139/78 93 Room Air 03/05/16 08:24 98.6 78 20 140/67 93 Room Air 03/05/16 07:50 Nasal Cannula 2.0 03/05/16 07:49 96 Nasal Cannula 2.0 03/05/16 04:21 99.7 82 20 121/52 97 Nasal Cannula 2.0 03/05/16 01:02 97.6 108 17 152/61 92 Nasal Cannula 5.0 03/04/16 19:37 Nasal Cannula 2.0 28 03/04/16 19:00 98.1 84 20 153/73 97 Nasal Cannula 2.0 Intake and Output 03/04/16 03/05/16 19:00 07:00 Intake Total 600 ml 120 ml Balance 600 ml 120 ml Intake Oral 600 ml 120 ml # Voids 2 4 General Appearance: WD/WN HEENT: normocephalic, atraumatic Respiratory/Chest: chest wall non-tender, normal breath sounds Cardiovascular: normal peripheral pulses, normal rate Abdomen: normal bowel sounds, soft, non tender Genitourinary: normal external genitalia Extremities: no clubbing Skin: no rash Microbiology Date/Time Source Procedure Growth Status 03/03/16 16:10 Blood Blood Culture - Preliminary NO GROWTH AFTER 24 HOURS Resulted 03/03/16 15:55 Blood Blood Culture - Preliminary NO GROWTH AFTER 24 HOURS Resulted 03/03/16 16:36 Urine,Clean Catch Urine Culture - Preliminary Escherichia Coli Gram Negative Bacillus 2 Resulted Laboratory Tests 03/05/16 07:05: White Blood Count 17.3H, Red Blood Count 3.72L, Hemoglobin 11.6L, Hematocrit 34.4L, Mean Corpuscular Volume 92, Mean Corpuscular Hemoglobin 31.2H, Mean Corpuscular Hemoglobin Concent 33.7, Red Cell Distribution Width 11.8, Platelet Count 267, Mean Platelet Volume 7.4, Neutrophils (%) (Auto) 71.2, Lymphocytes (% ) (Auto) 18.7L, Monocytes (%) (Auto) 9.4, Eosinophils (%) (Auto) 0.1, Basophils (%) (Auto) 0.6, Sodium Level 141, Potassium Level 3.9, Chloride Level 103, Carbon Dioxide Level 26, Anion Gap 12, Blood Urea Nitrogen 10, Creatinine 0.5, Estimat Glomerular Filtration Rate , Glucose Level 100, Calcium Level 8.3L, Phosphorus Level 2.7, Magnesium Level 2.0, Total Bilirubin 0.5, Aspartate Amino Transf (AST/SGOT) 14, Alanine Aminotransferase (ALT/SGPT) 6, Alkaline Phosphatase 72, Total Protein 5.7L, Albumin 2.9L, Globulin 2.8, Albumin/ Globulin Ratio 1.0 Current Medications Medications (Trade) Dose Ordered Sig/Марина Route PRN Reason Start Time Stop Time Status Last Admin Dose Admin Acetaminophen (Tylenol) 650 mg Q4H PRN ORAL T>100.5 03/04/16 14:00 04/03/16 13:59 Albuterol/ Ipratropium (DuoNeb 0.5-3(2.5)mg/3ml) 3 ml Q4H PRN HHN Shortness of Breath 03/04/16 14:00 03/09/16 13:59 Cefepime HCl/ Sodium Chloride (Maxipime/Sodium Chloride 100ml bag) 100 ml @ 100 mls/hr QHS IV 03/04/16 21:00 03/11/16 20:59 03/04/16 20:36 Heparin Sodium (Porcine) (Heparin 5000 units/ml) 5,000 units EVERY 12 HOURS SUBQ 03/04/16 21:00 04/03/16 20:59 03/05/16 08:43 Morphine Sulfate (Morphine Sulfate) 2 mg Q4H PRN IVP Moderate Pain (Pain Scale 4-6) 03/04/16 14:00 03/11/16 13:59 Nitroglycerin (Ntg) 0.4 mg Q5MIN X 3 DOSES PRN SL Prn Chest Pain 03/04/16 14:00 04/03/16 13:59 Ondansetron HCl (Zofran) 4 mg Q6H PRN IVP Nausea & Vomiting 03/04/16 18:00 04/03/16 17:59 Polyethylene Glycol (Miralax) 17 gm DAILYPRN PRN ORAL Constipation 03/04/16 18:00 04/03/16 17:59 Temazepam (Restoril) 15 mg HSPRN PRN ORAL Insomnia 03/04/16 21:00 03/11/16 20:59 EDISON RAMIREZ Mar 05, 2016 17:22
[2016-03-05] MEDS: Lisinopril 10mg tab ORAL SCH (17:43)
[2016-03-05 20:00] VITALS: BP 132/59
[2016-03-05] MEDS: LORazepam Inj 2mg/ml 1ml IVP PRN (23:08)
[2016-03-06] VITALS: BP 111/50
[2016-03-06 04:00] VITALS: BP 94/44
[2016-03-06 07:07] LABS: BASOPHILS % (AUTO) 0.8 % (0.0-2.0); EOSINOPHILS % (AUTO) 0.2 % (0.0-3.0); LYMPHOCYTES % (AUTO) 18.8 % (20.0-45.0); MEAN CORPUSCULAR HGB CONC 33.4 G/DL (32.0-36.0); MEAN CORPUSCULAR VOLUME 93 FL (80-99); MEAN PLATELET VOLUME 7.1 FL (6.5-10.1); MONOCYTES % (AUTO) 9.4 % (1.0-10.0); NEUTROPHILS % (AUTO) 70.8 % (45.0-75.0); PLATELET COUNT 270 K/UL (150-450); RED BLOOD COUNT 3.66 M/UL (4.20-5.40); RED CELL DISTRIBUTION WIDTH 11.8 % (11.6-14.8); WHITE BLOOD COUNT 12.4 K/UL (4.8-10.8)
[2016-03-06 07:39] LABS: ALANINE AMINOTRANSFERASE 6 U/L (3-33); ANION GAP 12 (5-15); ASPARTATE AMINO TRANSFERASE 12 U/L (5-40); CALCIUM 8.5 mg/dL (8.6-10.2); CARBON DIOXIDE 28 mEQ/L (20-30); CHLORIDE 103 mEQ/L (98-107); CREATININE 0.7 mg/dL (0.5-0.9); HEMOLYSIS 1; PHOSPHORUS 2.9 mg/dL (2.5-4.8); POTASSIUM 4.1 mEQ/L (3.4-4.9); SODIUM 143 mEQ/L (135-145)
[2016-03-06 08:00] VITALS: BP 131/45
[2016-03-06] MEDS: Heparin 5000 units/ml inj SUBQ SCH ×2 (09:26→22:41)
[2016-03-06] MEDS: Lisinopril 10mg tab ORAL SCH (09:36)
--- NOTE | 2016-03-06 10:05 | Infectious Diseases Prog Note ---
Assessment/Plan Assessment/Plan A: The patient is an 80-year-old female Leukocytosis , improving Sepsis improving Fever improving UTI Ucx : E Coli x2 Probable Pna Chest : x-ray, right lateral basilar infiltrates suggestive of pneumonia HTN Dementia Hearing loss. History of chronic constipation. Vancomycin allergy Full Code PLAN: Cont on cefepime d# 3 DC vancomycin d# 2 Monitor CBC. Monitor BMP. Ultrasound of the abdomen. Monitor cultures (blood and urine) Subjective Allergies: Coded Allergies: VANCOMYCIN (Verified Adverse Reaction, Unknown, Tachycardia/chest pain/SOB , 03/05/16) Subjective recurrent fever x1, WBC improving Objective Vital Signs Last 24 Hour Vital Signs Date Time Temp Pulse Resp B/P Pulse Ox O2 Delivery O2 Flow Rate FiO2 03/06/16 09:36 131/73 03/06/16 04:00 97.3 70 20 94/44 98 Nasal Cannula 3.0 03/06/16 01:26 99.0 03/06/16 00:00 101.7 121 22 111/50 95 Nasal Cannula 2.0 03/05/16 20:00 98.6 96 20 132/59 97 Nasal Cannula 2.0 03/05/16 19:14 98 Nasal Cannula 2.0 28 03/05/16 19:14 Nasal Cannula 2.0 28 03/05/16 17:43 172/76 03/05/16 16:43 98.2 89 20 169/80 97 Room Air 2.0 03/05/16 12:15 97.9 80 19 139/78 93 Room Air Height (Feet): 5 Height (Inches): 2.00 Weight (Pounds): 120 General Appearance: no acute distress Respiratory/Chest: no respiratory distress Cardiovascular: normal rate, regular rhythm Abdomen: normal bowel sounds, soft, non tender, non distended Microbiology Date/Time Source Procedure Growth Status 03/04/16 09:20 Blood Blood Culture - Preliminary NO GROWTH AFTER 24 HOURS Resulted 03/04/16 09:10 Blood Blood Culture - Preliminary NO GROWTH AFTER 24 HOURS Resulted 03/03/16 16:10 Blood Blood Culture - Preliminary NO GROWTH AFTER 48 HOURS Resulted 03/03/16 15:55 Blood Blood Culture - Preliminary NO GROWTH AFTER 48 HOURS Resulted 03/05/16 19:30 Indwelling Cath Urine Culture - Preliminary NO GROWTH Resulted 03/03/16 16:36 Urine,Clean Catch Urine Culture - Final Escherichia Coli Escherichia Coli#2 Complete Laboratory Tests Test 03/06/16 05:15 White Blood Count 12.4 K/UL (4.8-10.8) H Red Blood Count 3.66 M/UL (4.20-5.40) L Hemoglobin 11.4 G/DL (12.0-16.0) L Hematocrit 34.0 % (37.0-47.0) L Mean Corpuscular Volume 93 FL (80-99) Mean Corpuscular Hemoglobin 31.0 PG (27.0-31.0) Mean Corpuscular Hemoglobin Concent 33.4 G/DL (32.0-36.0) Red Cell Distribution Width 11.8 % (11.6-14.8) Platelet Count 270 K/UL (150-450) Mean Platelet Volume 7.1 FL (6.5-10.1) Neutrophils (%) (Auto) 70.8 % (45.0-75.0) Lymphocytes (%) (Auto) 18.8 % (20.0-45.0) L Monocytes (%) (Auto) 9.4 % (1.0-10.0) Eosinophils (%) (Auto) 0.2 % (0.0-3.0) Basophils (%) (Auto) 0.8 % (0.0-2.0) Sodium Level 143 mEQ/L (135-145) Potassium Level 4.1 mEQ/L (3.4-4.9) Chloride Level 103 mEQ/L (98-107) Carbon Dioxide Level 28 mEQ/L (20-30) Anion Gap 12 (5-15) Blood Urea Nitrogen 9 mg/dL (7-23) Creatinine 0.7 mg/dL (0.5-0.9) Estimat Glomerular Filtration Rate mL/min (>60) Glucose Level 109 mg/dL (74-106) H Calcium Level 8.5 mg/dL (8.6-10.2) L Phosphorus Level 2.9 mg/dL (2.5-4.8) Magnesium Level 2.0 mg/dL (1.7-2.5) Total Bilirubin 0.6 mg/dL (0.0-1.2) Aspartate Amino Transf (AST/SGOT) 12 U/L (5-40) Alanine Aminotransferase (ALT/SGPT) 6 U/L (3-33) Alkaline Phosphatase 114 U/L (35-104) H Total Protein 6.0 g/dL (6.6-8.7) L Albumin 3.0 g/dL (3.5-5.2) L Globulin 3.0 g/dL Albumin/Globulin Ratio 1.0 (1.0-2.7) Current Medications Medications (Trade) Dose Ordered Sig/Марина Route PRN Reason Start Time Stop Time Status Last Admin Dose Admin Acetaminophen (Tylenol) 650 mg Q4H PRN ORAL T>100.5 03/04/16 14:00 04/03/16 13:59 03/06/16 00:27 Albuterol/ Ipratropium (DuoNeb 0.5-3(2.5)mg/3ml) 3 ml Q4H PRN HHN Shortness of Breath 03/04/16 14:00 03/09/16 13:59 Cefepime HCl/ Sodium Chloride (Maxipime/Sodium Chloride 100ml bag) 100 ml @ 100 mls/hr QHS IV 03/04/16 21:00 03/11/16 20:59 03/05/16 20:32 Heparin Sodium (Porcine) (Heparin 5000 units/ml) 5,000 units EVERY 12 HOURS SUBQ 03/04/16 21:00 04/03/16 20:59 03/06/16 09:26 Lisinopril (Zestril) 10 mg DAILY ORAL 03/05/16 18:00 04/04/16 17:59 03/06/16 09:36 Lorazepam (Ativan 2mg/ml 1ml) 0.5 mg Q4H PRN IVP For Anxiety 03/05/16 20:15 03/12/16 20:14 03/05/16 23:08 Morphine Sulfate (Morphine Sulfate) 2 mg Q4H PRN IVP Moderate Pain (Pain Scale 4-6) 03/04/16 14:00 03/11/16 13:59 Nitroglycerin (Ntg) 0.4 mg Q5MIN X 3 DOSES PRN SL Prn Chest Pain 03/04/16 14:00 04/03/16 13:59 Ondansetron HCl (Zofran) 4 mg Q6H PRN IVP Nausea & Vomiting 03/04/16 18:00 04/03/16 17:59 Polyethylene Glycol (Miralax) 17 gm DAILYPRN PRN ORAL Constipation 03/04/16 18:00 04/03/16 17:59 Temazepam (Restoril) 15 mg HSPRN PRN ORAL Insomnia 03/04/16 21:00 03/11/16 20:59 MEME SPARKS Mar 06, 2016 10:04
--- NOTE | 2016-03-06 11:01 | Diagnostic Imaging Report ---
Indication: Abdominal pain Technique: Romo-scale and duplex images of the upper abdomen were obtained Comparison: Findings: . Gallbladder is distended. No stones, wall thickening, nor pericholecystic fluid. Sonographic Goode's sign is negative. Common bile duct measures 6 mm in diameter. No intrahepatic biliary ductal dilatation. Liver demonstrates normal echogenicity, no focal abnormality. Portal vein and hepatic veins are patent.. Pancreas is unremarkable. Spleen is unremarkable. Left kidney measures 1027 cm in length. Right kidney measures 11.6 cm length. Both kidneys demonstrate normal echogenicity. There is no hydronephrosis. No focal abnormality. . Abdominal aorta is partially obscured by bowel gas, visualized portions are non-aneurysmal. Impression: Essentially unremarkable exam. Negative for gallstones, dilated ducts, or other acute pathology Note inability to visualize the distal abdominal aorta
[2016-03-06 12:00] VITALS: BP 124/67
--- NOTE | 2016-03-06 14:36 | Diagnostic Imaging Report ---
Indications: Chest pain Technique: Portable AP chest Findings: Comparison: None Suboptimal inspiration limits evaluation. 2 cm nodular opacity suggested in the/over lateral right lung base. Visualized portions of left lung, bilateral pleural surfaces clear. Cardiac silhouette partially obscured, may be enlarged. Pulmonary vasculature within normal limits. Aortic arch calcified. Thoracic kyphosis exaggerated. IMPRESSION: Apparent nodular density right lung base may represent summation artifact. Focal parenchymal quality not excludable. Upright PA and lateral chest radiographs with better inspiratory effort and optimal technique recommended for more complete evaluation. Questionable cardiomegaly Aortosclerosis Thoracic kyphosis
[2016-03-06 16:00] VITALS: BP 130/78
--- NOTE | 2016-03-06 16:04 | Internal Med Progress Note ---
Subjective Date of Service: Mar 06, 2016 Physician Name WangPreeti moreno Attending Physician Yina Huddleston Current Medications Medications (Trade) Dose Ordered Sig/Марина Route PRN Reason Start Time Stop Time Status Last Admin Dose Admin Acetaminophen (Tylenol) 650 mg Q4H PRN ORAL T>100.5 03/04/16 14:00 04/03/16 13:59 03/06/16 00:27 Albuterol/ Ipratropium (DuoNeb 0.5-3(2.5)mg/3ml) 3 ml Q4H PRN HHN Shortness of Breath 03/04/16 14:00 03/09/16 13:59 Cefepime HCl/ Sodium Chloride (Maxipime/Sodium Chloride 100ml bag) 100 ml @ 100 mls/hr QHS IV 03/04/16 21:00 03/11/16 20:59 03/05/16 20:32 Heparin Sodium (Porcine) (Heparin 5000 units/ml) 5,000 units EVERY 12 HOURS SUBQ 03/04/16 21:00 04/03/16 20:59 03/06/16 09:26 Lisinopril (Zestril) 10 mg DAILY ORAL 03/05/16 18:00 04/04/16 17:59 03/06/16 09:36 Lorazepam (Ativan 2mg/ml 1ml) 0.5 mg Q4H PRN IVP For Anxiety 03/05/16 20:15 03/12/16 20:14 03/05/16 23:08 Morphine Sulfate (Morphine Sulfate) 2 mg Q4H PRN IVP Moderate Pain (Pain Scale 4-6) 03/04/16 14:00 03/11/16 13:59 Nitroglycerin (Ntg) 0.4 mg Q5MIN X 3 DOSES PRN SL Prn Chest Pain 03/04/16 14:00 04/03/16 13:59 Ondansetron HCl (Zofran) 4 mg Q6H PRN IVP Nausea & Vomiting 03/04/16 18:00 04/03/16 17:59 Polyethylene Glycol (Miralax) 17 gm DAILYPRN PRN ORAL Constipation 03/04/16 18:00 04/03/16 17:59 Temazepam (Restoril) 15 mg HSPRN PRN ORAL Insomnia 03/04/16 21:00 03/11/16 20:59 Allergies: Coded Allergies: VANCOMYCIN (Verified Adverse Reaction, Unknown, Tachycardia/chest pain/SOB , 03/05/16) ROS Limited/Unobtainable: Yes Subjective Cover for Int Juan Miguel-Dr Huddleston Objective Last Vital Signs Date Time Temp Pulse Resp B/P Pulse Ox O2 Delivery O2 Flow Rate FiO2 03/06/16 09:36 131/73 03/06/16 08:00 97.2 76 18 99 Nasal Cannula 2.0 03/06/16 07:30 28 General Appearance: WD/WN, no apparent distress, alert EENT: PERRL/EOMI, normal ENT inspection Neck: non-tender, normal alignment, supple Cardiovascular: normal peripheral pulses, normal rate, regular rhythm, no gallop/murmur, no JVD Respiratory/Chest: chest wall non-tender, decreased breath sounds, crackles/ rales, rhonchi - bilaterally, expiratory wheezing Abdomen: normal bowel sounds, non tender, soft, no organomegaly, no mass Extremities: normal range of motion Neurologic: agile tester II-XII grossly normal, no motor/sensory deficits Skin: normal pigmentation, warm/dry Laboratory Tests Test 03/06/16 05:15 White Blood Count 12.4 K/UL (4.8-10.8) H Red Blood Count 3.66 M/UL (4.20-5.40) L Hemoglobin 11.4 G/DL (12.0-16.0) L Hematocrit 34.0 % (37.0-47.0) L Mean Corpuscular Volume 93 FL (80-99) Mean Corpuscular Hemoglobin 31.0 PG (27.0-31.0) Mean Corpuscular Hemoglobin Concent 33.4 G/DL (32.0-36.0) Red Cell Distribution Width 11.8 % (11.6-14.8) Platelet Count 270 K/UL (150-450) Mean Platelet Volume 7.1 FL (6.5-10.1) Neutrophils (%) (Auto) 70.8 % (45.0-75.0) Lymphocytes (%) (Auto) 18.8 % (20.0-45.0) L Monocytes (%) (Auto) 9.4 % (1.0-10.0) Eosinophils (%) (Auto) 0.2 % (0.0-3.0) Basophils (%) (Auto) 0.8 % (0.0-2.0) Sodium Level 143 mEQ/L (135-145) Potassium Level 4.1 mEQ/L (3.4-4.9) Chloride Level 103 mEQ/L (98-107) Carbon Dioxide Level 28 mEQ/L (20-30) Anion Gap 12 (5-15) Blood Urea Nitrogen 9 mg/dL (7-23) Creatinine 0.7 mg/dL (0.5-0.9) Estimat Glomerular Filtration Rate mL/min (>60) Glucose Level 109 mg/dL (74-106) H Calcium Level 8.5 mg/dL (8.6-10.2) L Phosphorus Level 2.9 mg/dL (2.5-4.8) Magnesium Level 2.0 mg/dL (1.7-2.5) Total Bilirubin 0.6 mg/dL (0.0-1.2) Aspartate Amino Transf (AST/SGOT) 12 U/L (5-40) Alanine Aminotransferase (ALT/SGPT) 6 U/L (3-33) Alkaline Phosphatase 114 U/L (35-104) H Total Protein 6.0 g/dL (6.6-8.7) L Albumin 3.0 g/dL (3.5-5.2) L Globulin 3.0 g/dL Albumin/Globulin Ratio 1.0 (1.0-2.7) Microbiology Date/Time Source Procedure Growth Status 03/04/16 09:20 Blood Blood Culture - Preliminary NO GROWTH AFTER 24 HOURS Resulted 03/04/16 09:10 Blood Blood Culture - Preliminary NO GROWTH AFTER 24 HOURS Resulted 03/03/16 16:10 Blood Blood Culture - Preliminary NO GROWTH AFTER 48 HOURS Resulted 03/05/16 19:30 Indwelling Cath Urine Culture - Preliminary NO GROWTH Resulted 03/03/16 16:36 Urine,Clean Catch Urine Culture - Final Escherichia Coli Escherichia Coli#2 Complete Intake and Output 03/05/16 03/06/16 19:00 07:00 Intake Total 320 ml 300 ml Balance 320 ml 300 ml Intake Oral 320 ml 300 ml # Voids 2 2 Assessment/Plan Problem List: (1) Leukocytosis (2) UTI (urinary tract infection) Assessment & Plan: E. Coli. Cont cefepime per ID (3) Sepsis (4) Acute encephalopathy (5) HTN (hypertension) (6) Dementia (7) Episode of generalized weakness (8) Pneumonia Assessment & Plan: Right basilar. Cont cepepime per ID Status: PREETI Parmar Mar 06, 2016 16:04
[2016-03-06 20:00] VITALS: BP 149/96
[2016-03-06] MEDS: LORazepam Inj 2mg/ml 1ml IVP PRN (23:05)
[2016-03-07] VITALS: BP 158/77
[2016-03-07 04:00] VITALS: BP 136/74
[2016-03-07 07:58] LABS: BASOPHILS % (AUTO) 1.5 % (0.0-2.0); EOSINOPHILS % (AUTO) 1.8 % (0.0-3.0); LYMPHOCYTES % (AUTO) 31.7 % (20.0-45.0); MEAN CORPUSCULAR HEMOGLOBIN 30.8 PG (27.0-31.0); MEAN CORPUSCULAR HGB CONC 33.3 G/DL (32.0-36.0); MEAN CORPUSCULAR VOLUME 92 FL (80-99); MEAN PLATELET VOLUME 6.7 FL (6.5-10.1); MONOCYTES % (AUTO) 11.8 % (1.0-10.0); NEUTROPHILS % (AUTO) 53.2 % (45.0-75.0); PLATELET COUNT 304 K/UL (150-450); RED CELL DISTRIBUTION WIDTH 11.9 % (11.6-14.8); WHITE BLOOD COUNT 9.2 K/UL (4.8-10.8)
[2016-03-07 08:00] VITALS: BP 155/79
[2016-03-07 08:25] LABS: ANION GAP 10 (5-15); CALCIUM 8.4 mg/dL (8.6-10.2); CARBON DIOXIDE 29 mEQ/L (20-30); CHLORIDE 104 mEQ/L (98-107); CREATININE 0.5 mg/dL (0.5-0.9); HEMOLYSIS 1; POTASSIUM 3.8 mEQ/L (3.4-4.9); SODIUM 143 mEQ/L (135-145)
--- NOTE | 2016-03-07 08:42 | Infectious Diseases Prog Note ---
Assessment/Plan Assessment/Plan A: The patient is an 80-year-old female Leukocytosis SP Sepsis SP Fever SP UTI UCx : E Coli x2 Probable Pna Chest : x-ray, right lateral basilar infiltrates suggestive of pneumonia HTN Dementia Hearing loss. History of chronic constipation. Vancomycin allergy Full Code PLAN: de-escalate cefepime d# 4 to rocephin d# 1 ( ABX d# 4 / 7 ) ( 03/05 SP vancomycin d# 2 ) Monitor CBC. Monitor BMP. Ultrasound of the abdomen. Monitor cultures (blood and urine) Subjective Allergies: Coded Allergies: VANCOMYCIN (Verified Adverse Reaction, Unknown, Tachycardia/chest pain/SOB , 03/05/16) Subjective recurrent fever x1, leukocytosis resolved Objective Vital Signs Last 24 Hour Vital Signs Date Time Temp Pulse Resp B/P Pulse Ox O2 Delivery O2 Flow Rate FiO2 03/07/16 04:00 96.1 82 20 136/74 93 Nasal Cannula 3.0 03/07/16 00:00 98.1 91 20 158/77 98 Nasal Cannula 3.0 03/06/16 20:00 97.7 83 20 149/96 97 Nasal Cannula 3.0 03/06/16 19:20 97 Nasal Cannula 2.0 28 03/06/16 19:13 Nasal Cannula 2.0 28 03/06/16 16:00 97.4 78 18 130/78 99 Nasal Cannula 2.0 03/06/16 12:00 96.0 82 20 124/67 97 Nasal Cannula 2.0 03/06/16 09:36 131/73 Height (Feet): 5 Height (Inches): 2.00 Weight (Pounds): 120 General Appearance: no acute distress Respiratory/Chest: no respiratory distress Cardiovascular: normal rate, regular rhythm Abdomen: normal bowel sounds, soft, non tender, non distended Microbiology Date/Time Source Procedure Growth Status 03/04/16 09:20 Blood Blood Culture - Preliminary NO GROWTH AFTER 48 HOURS Resulted 03/04/16 09:10 Blood Blood Culture - Preliminary NO GROWTH AFTER 48 HOURS Resulted 03/05/16 19:30 Indwelling Cath Urine Culture - Preliminary NO GROWTH Resulted Laboratory Tests Test 03/07/16 07:00 White Blood Count 9.2 K/UL (4.8-10.8) Red Blood Count 3.80 M/UL (4.20-5.40) L Hemoglobin 11.7 G/DL (12.0-16.0) L Hematocrit 35.1 % (37.0-47.0) L Mean Corpuscular Volume 92 FL (80-99) Mean Corpuscular Hemoglobin 30.8 PG (27.0-31.0) Mean Corpuscular Hemoglobin Concent 33.3 G/DL (32.0-36.0) Red Cell Distribution Width 11.9 % (11.6-14.8) Platelet Count 304 K/UL (150-450) Mean Platelet Volume 6.7 FL (6.5-10.1) Neutrophils (%) (Auto) 53.2 % (45.0-75.0) Lymphocytes (%) (Auto) 31.7 % (20.0-45.0) Monocytes (%) (Auto) 11.8 % (1.0-10.0) H Eosinophils (%) (Auto) 1.8 % (0.0-3.0) Basophils (%) (Auto) 1.5 % (0.0-2.0) Sodium Level 143 mEQ/L (135-145) Potassium Level 3.8 mEQ/L (3.4-4.9) Chloride Level 104 mEQ/L (98-107) Carbon Dioxide Level 29 mEQ/L (20-30) Anion Gap 10 (5-15) Blood Urea Nitrogen 8 mg/dL (7-23) Creatinine 0.5 mg/dL (0.5-0.9) Estimat Glomerular Filtration Rate mL/min (>60) Glucose Level 92 mg/dL (74-106) Calcium Level 8.4 mg/dL (8.6-10.2) L Current Medications Medications (Trade) Dose Ordered Sig/Марина Route PRN Reason Start Time Stop Time Status Last Admin Dose Admin Acetaminophen (Tylenol) 650 mg Q4H PRN ORAL T>100.5 03/04/16 14:00 04/03/16 13:59 03/06/16 00:27 Albuterol/ Ipratropium (DuoNeb 0.5-3(2.5)mg/3ml) 3 ml Q4H PRN HHN Shortness of Breath 03/04/16 14:00 03/09/16 13:59 Cefepime HCl/ Sodium Chloride (Maxipime/Sodium Chloride 100ml bag) 100 ml @ 100 mls/hr QHS IV 03/04/16 21:00 03/11/16 20:59 03/06/16 22:35 Heparin Sodium (Porcine) (Heparin 5000 units/ml) 5,000 units EVERY 12 HOURS SUBQ 03/04/16 21:00 04/03/16 20:59 03/06/16 22:41 Lisinopril (Zestril) 10 mg DAILY ORAL 03/05/16 18:00 04/04/16 17:59 03/06/16 09:36 Lorazepam (Ativan 2mg/ml 1ml) 0.5 mg Q4H PRN IVP For Anxiety 03/05/16 20:15 03/12/16 20:14 03/06/16 23:05 Morphine Sulfate (Morphine Sulfate) 2 mg Q4H PRN IVP Moderate Pain (Pain Scale 4-6) 03/04/16 14:00 03/11/16 13:59 Nitroglycerin (Ntg) 0.4 mg Q5MIN X 3 DOSES PRN SL Prn Chest Pain 03/04/16 14:00 04/03/16 13:59 Ondansetron HCl (Zofran) 4 mg Q6H PRN IVP Nausea & Vomiting 03/04/16 18:00 04/03/16 17:59 Polyethylene Glycol (Miralax) 17 gm DAILYPRN PRN ORAL Constipation 03/04/16 18:00 04/03/16 17:59 Temazepam (Restoril) 15 mg HSPRN PRN ORAL Insomnia 03/04/16 21:00 03/11/16 20:59 MEME SPARKS Mar 07, 2016 08:42
[2016-03-07] MEDS: Lisinopril 10mg tab ORAL SCH (11:04)
[2016-03-07] MEDS: cefTRIAXone 1 GM in D5W 50 ML IVPB SCH (11:05)
[2016-03-07] MEDS: Heparin 5000 units/ml inj SUBQ SCH ×2 (11:06→20:20)
[2016-03-07 12:00] VITALS: BP 150/57
[2016-03-07 16:00] VITALS: BP 148/77
--- NOTE | 2016-03-07 17:38 | Internal Med Progress Note ---
Subjective Date of Service: Mar 07, 2016 Physician Name WangPreeti moreno Attending Physician Yina Huddleston Current Medications Medications (Trade) Dose Ordered Sig/Марина Route PRN Reason Start Time Stop Time Status Last Admin Dose Admin Acetaminophen (Tylenol) 650 mg Q4H PRN ORAL T>100.5 03/04/16 14:00 04/03/16 13:59 03/06/16 00:27 Albuterol/ Ipratropium (DuoNeb 0.5-3(2.5)mg/3ml) 3 ml Q4H PRN HHN Shortness of Breath 03/04/16 14:00 03/09/16 13:59 Ceftriaxone Sodium/Dextrose (Rocephin/D5W 50ml) 50 ml @ 100 mls/hr Q24H IVPB 03/07/16 10:00 03/14/16 09:59 03/07/16 11:05 Heparin Sodium (Porcine) (Heparin 5000 units/ml) 5,000 units EVERY 12 HOURS SUBQ 03/04/16 21:00 04/03/16 20:59 03/07/16 11:06 Lisinopril (Zestril) 10 mg DAILY ORAL 03/05/16 18:00 04/04/16 17:59 03/07/16 11:04 Lorazepam 0.5 mg 0.5 mg Q4H PRN IVP For Anxiety 03/05/16 20:15 03/12/16 20:14 03/06/16 23:05 Morphine Sulfate (Morphine Sulfate) 2 mg Q4H PRN IVP Moderate Pain (Pain Scale 4-6) 03/04/16 14:00 03/11/16 13:59 Nitroglycerin (Ntg) 0.4 mg Q5MIN X 3 DOSES PRN SL Prn Chest Pain 03/04/16 14:00 04/03/16 13:59 Ondansetron HCl (Zofran) 4 mg Q6H PRN IVP Nausea & Vomiting 03/04/16 18:00 04/03/16 17:59 Polyethylene Glycol (Miralax) 17 gm DAILYPRN PRN ORAL Constipation 03/04/16 18:00 04/03/16 17:59 Temazepam (Restoril) 15 mg HSPRN PRN ORAL Insomnia 03/04/16 21:00 03/11/16 20:59 Allergies: Coded Allergies: VANCOMYCIN (Verified Adverse Reaction, Unknown, Tachycardia/chest pain/SOB , 03/05/16) ROS Limited/Unobtainable: Yes Subjective Cover for Int Juan Miguel-Dr Huddleston Objective Last Vital Signs Date Time Temp Pulse Resp B/P Pulse Ox O2 Delivery O2 Flow Rate FiO2 03/07/16 12:00 97.3 79 18 150/57 97 Room Air 03/07/16 08:00 3.0 03/07/16 07:30 28 Laboratory Tests Test 03/07/16 07:00 White Blood Count 9.2 K/UL (4.8-10.8) Red Blood Count 3.80 M/UL (4.20-5.40) L Hemoglobin 11.7 G/DL (12.0-16.0) L Hematocrit 35.1 % (37.0-47.0) L Mean Corpuscular Volume 92 FL (80-99) Mean Corpuscular Hemoglobin 30.8 PG (27.0-31.0) Mean Corpuscular Hemoglobin Concent 33.3 G/DL (32.0-36.0) Red Cell Distribution Width 11.9 % (11.6-14.8) Platelet Count 304 K/UL (150-450) Mean Platelet Volume 6.7 FL (6.5-10.1) Neutrophils (%) (Auto) 53.2 % (45.0-75.0) Lymphocytes (%) (Auto) 31.7 % (20.0-45.0) Monocytes (%) (Auto) 11.8 % (1.0-10.0) H Eosinophils (%) (Auto) 1.8 % (0.0-3.0) Basophils (%) (Auto) 1.5 % (0.0-2.0) Sodium Level 143 mEQ/L (135-145) Potassium Level 3.8 mEQ/L (3.4-4.9) Chloride Level 104 mEQ/L (98-107) Carbon Dioxide Level 29 mEQ/L (20-30) Anion Gap 10 (5-15) Blood Urea Nitrogen 8 mg/dL (7-23) Creatinine 0.5 mg/dL (0.5-0.9) Estimat Glomerular Filtration Rate mL/min (>60) Glucose Level 92 mg/dL (74-106) Calcium Level 8.4 mg/dL (8.6-10.2) L Microbiology Date/Time Source Procedure Growth Status 03/05/16 19:30 Indwelling Cath Urine Culture - Preliminary NO GROWTH AFTER 24 HOURS Resulted Intake and Output 03/06/16 03/07/16 19:00 07:00 Intake Total 220 ml 100 ml Balance 220 ml 100 ml Intake Oral 220 ml IV Total 100 ml # Voids 1 3 Objective General Appearance: WD/WN, no apparent distress, alert EENT: PERRL/EOMI, normal ENT inspection Neck: non-tender, normal alignment, supple Cardiovascular: normal peripheral pulses, normal rate, regular rhythm, no gallop/murmur, no JVD Respiratory/Chest: chest wall non-tender, decreased breath sounds, crackles/ rales, rhonchi - bilaterally, expiratory wheezing Abdomen: normal bowel sounds, non tender, soft, no organomegaly, no mass Extremities: normal range of motion 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 Coli. Cont cefepime per ID (3) Sepsis (4) Acute encephalopathy (5) HTN (hypertension) (6) Dementia (7) Episode of generalized weakness (8) Pneumonia Assessment & Plan: Right basilar. Cont cepepime per ID Status: not improved PREETI WANG Mar 07, 2016 17:38
[2016-03-07 20:00] VITALS: BP 161/90
[2016-03-08] VITALS: BP 130/72
[2016-03-08 08:51] VITALS: BP 146/73
--- NOTE | 2016-03-08 08:58 | Infectious Diseases Prog Note ---
Assessment/Plan Assessment/Plan A: The patient is an 80-year-old female Leukocytosis SP Sepsis SP Fever SP UTI UCx : qR-E Coli x2 Probable Pna Chest : x-ray, right lateral basilar infiltrates suggestive of pneumonia HTN Dementia Hearing loss. History of chronic constipation. Vancomycin allergy Full Code PLAN: continue rocephin d# 2 ( ABX d# 5 / ). Ok to complete course with PO keflex at discharge ( 03/07 SP cefepime d# 4 ) ( 03/05 SP vancomycin d# 2 ) Monitor CBC. Monitor BMP.. Monitor cultures (blood) Subjective Allergies: Coded Allergies: VANCOMYCIN (Verified Adverse Reaction, Unknown, Tachycardia/chest pain/SOB , 03/05/16) Subjective recurrent fever x1, leukocytosis resolved Objective Vital Signs Last 24 Hour Vital Signs Date Time Temp Pulse Resp B/P Pulse Ox O2 Delivery O2 Flow Rate FiO2 03/08/16 08:51 97.0 77 20 146/73 95 Room Air 03/08/16 00:00 03/07/16 20:00 97.7 85 18 161/90 97 Nasal Cannula 03/07/16 19:08 98 Nasal Cannula 2.0 28 03/07/16 19:08 Nasal Cannula 2.0 28 03/07/16 16:00 96.2 79 18 148/77 97 Room Air 03/07/16 12:00 97.3 79 18 150/57 97 Room Air 03/07/16 11:04 155/79 Height (Feet): 5 Height (Inches): 2.00 Weight (Pounds): 120 General Appearance: no acute distress Respiratory/Chest: no respiratory distress Cardiovascular: normal rate, regular rhythm Abdomen: normal bowel sounds, soft, non tender, non distended Microbiology Date/Time Source Procedure Growth Status 03/05/16 19:30 Indwelling Cath Urine Culture - Preliminary NO GROWTH AFTER 24 HOURS Resulted Current Medications Medications (Trade) Dose Ordered Sig/Марина Route PRN Reason Start Time Stop Time Status Last Admin Dose Admin Acetaminophen (Tylenol) 650 mg Q4H PRN ORAL T>100.5 03/04/16 14:00 04/03/16 13:59 03/06/16 00:27 Albuterol/ Ipratropium (DuoNeb 0.5-3(2.5)mg/3ml) 3 ml Q4H PRN HHN Shortness of Breath 03/04/16 14:00 03/09/16 13:59 Ceftriaxone Sodium/Dextrose (Rocephin/D5W 50ml) 50 ml @ 100 mls/hr Q24H IVPB 03/07/16 10:00 03/14/16 09:59 03/07/16 11:05 Heparin Sodium (Porcine) (Heparin 5000 units/ml) 5,000 units EVERY 12 HOURS SUBQ 03/04/16 21:00 04/03/16 20:59 03/07/16 20:20 Lisinopril (Zestril) 10 mg DAILY ORAL 03/05/16 18:00 04/04/16 17:59 03/07/16 11:04 Lorazepam 0.5 mg 0.5 mg Q4H PRN IVP For Anxiety 03/05/16 20:15 03/12/16 20:14 03/06/16 23:05 Morphine Sulfate (Morphine Sulfate) 2 mg Q4H PRN IVP Moderate Pain (Pain Scale 4-6) 03/04/16 14:00 03/11/16 13:59 Nitroglycerin (Ntg) 0.4 mg Q5MIN X 3 DOSES PRN SL Prn Chest Pain 03/04/16 14:00 04/03/16 13:59 Ondansetron HCl (Zofran) 4 mg Q6H PRN IVP Nausea & Vomiting 03/04/16 18:00 04/03/16 17:59 Polyethylene Glycol (Miralax) 17 gm DAILYPRN PRN ORAL Constipation 03/04/16 18:00 04/03/16 17:59 Temazepam (Restoril) 15 mg HSPRN PRN ORAL Insomnia 03/04/16 21:00 03/11/16 20:59 MEME SPARKS Mar 08, 2016 08:58
[2016-03-08] MEDS: Lisinopril 10mg tab ORAL SCH (09:41)
[2016-03-08] MEDS: Heparin 5000 units/ml inj SUBQ SCH (09:42)
[2016-03-08] MEDS: cefTRIAXone 1 GM in D5W 50 ML IVPB SCH (09:46)
[2016-03-08 12:00] VITALS: BP 132/67
[2016-03-08 15:46] VITALS: BP 153/74
[2016-03-08] MEDS ORDERED: CEPHALEXIN500 MG ORAL (16:44)
--- NOTE | 2016-03-08 16:49 | Pulmonology Progress Note ---
Assessment/Plan Problems: (1) Sepsis (2) Acute encephalopathy (3) Episode of generalized weakness (4) Pneumonia (5) Dementia (6) HTN (hypertension) Assessment/Plan improving check GNR in urine, sensitivity available monitor electrolytes dvt prophylaxis ID evaluaiton appreciated dc home with oral Keflex as recommended by ID Subjective ROS Limited/Unobtainable: No Constitutional: Reports: no symptoms HEENT: Repors: no symptoms Respiratory: Reports: no symptoms Cardiovascular: Reports: no symptoms Gastrointestinal/Abdominal: Reports: no symptoms Allergies: Coded Allergies: VANCOMYCIN (Verified Adverse Reaction, Unknown, Tachycardia/chest pain/SOB , 03/05/16) Objective Last 24 Hour Vital Signs Date Time Temp Pulse Resp B/P Pulse Ox O2 Delivery O2 Flow Rate FiO2 03/08/16 15:46 96.8 81 18 153/74 94 Room Air 03/08/16 12:00 97.7 84 18 132/67 91 Room Air 03/08/16 09:41 146/73 03/08/16 09:35 Nasal Cannula 2.0 28 03/08/16 09:35 98 Nasal Cannula 2.0 28 03/08/16 08:51 97.0 77 20 146/73 95 Room Air 03/08/16 00:00 03/07/16 20:00 97.7 85 18 161/90 97 Nasal Cannula 03/07/16 19:08 98 Nasal Cannula 2.0 28 03/07/16 19:08 Nasal Cannula 2.0 28 Intake and Output 03/07/16 03/08/16 19:00 07:00 Intake Total 530 ml Balance 530 ml Intake Oral 480 ml IV Total 50 ml # Voids 4 4 # Bowel Movements 1 General Appearance: WD/WN HEENT: normocephalic Respiratory/Chest: chest wall non-tender, normal breath sounds Cardiovascular: normal peripheral pulses, regularly irregular Abdomen: normal bowel sounds, soft, non tender 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/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 II-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 grossly normal Lymphatic: no neck adenopathy Microbiology Date/Time Source Procedure Growth Status 03/05/16 19:30 Indwelling Cath Urine Culture - Final NO GROWTH AFTER 48 HOURS Complete Current Medications Medications (Trade) Dose Ordered Sig/Марина Route PRN Reason Start Time Stop Time Status Last Admin Dose Admin Acetaminophen (Tylenol) 650 mg Q4H PRN ORAL T>100.5 03/04/16 14:00 04/03/16 13:59 03/06/16 00:27 Albuterol/ Ipratropium (DuoNeb 0.5-3(2.5)mg/3ml) 3 ml Q4H PRN HHN Shortness of Breath 03/04/16 14:00 03/09/16 13:59 Ceftriaxone Sodium/Dextrose (Rocephin/D5W 50ml) 50 ml @ 100 mls/hr Q24H IVPB 03/07/16 10:00 03/14/16 09:59 03/08/16 09:46 Heparin Sodium (Porcine) (Heparin 5000 units/ml) 5,000 units EVERY 12 HOURS SUBQ 03/04/16 21:00 04/03/16 20:59 03/08/16 09:42 Influenza Virus Vaccine (Flu Vaccine) 0.5 ml ONCE ONCE IM 03/08/16 17:00 03/08/16 17:01 03/08/16 16:25 Lisinopril (Zestril) 10 mg DAILY ORAL 03/05/16 18:00 04/04/16 17:59 03/08/16 09:41 Lorazepam 0.5 mg 0.5 mg Q4H PRN IVP For Anxiety 03/05/16 20:15 03/12/16 20:14 03/06/16 23:05 Morphine Sulfate (Morphine Sulfate) 2 mg Q4H PRN IVP Moderate Pain (Pain Scale 4-6) 03/04/16 14:00 03/11/16 13:59 Nitroglycerin (Ntg) 0.4 mg Q5MIN X 3 DOSES PRN SL Prn Chest Pain 03/04/16 14:00 04/03/16 13:59 Ondansetron HCl (Zofran) 4 mg Q6H PRN IVP Nausea & Vomiting 03/04/16 18:00 04/03/16 17:59 Polyethylene Glycol (Miralax) 17 gm DAILYPRN PRN ORAL Constipation 03/04/16 18:00 04/03/16 17:59 Temazepam (Restoril) 15 mg HSPRN PRN ORAL Insomnia 03/04/16 21:00 03/11/16 20:59 EDISON RAMIREZ Mar 08, 2016 16:49
[2016-03-08] MEDS ORDERED: Influenza Virus Vaccine 0.5ml IM ONE (17:00)
[2016-03-08] MEDS ORDERED: Tubing IV Secondary IV ONE (17:41)
[2016-03-10] MEDS ORDERED: LISINOPRIL20 MG ORAL (14:42)
--- NOTE | 2016-03-10 14:48 | Discharge Summary ---
Discharge Summary Hospital Course Date of Admission Mar 03, 2016 at 16:53 Date of Discharge Mar 08, 2016 at 18:00 Admitting Diagnosis severe sepsis CHANDAN Lester is a 80 year old female who was admitted on Mar 03, 2016 at 16:53 for Severe Sepsis Hospital Course dc summary dictated #[id number] Discharge Condition Upon Discharge: improving, stable Discharge Disposition Patient was discharged to Home (01) Discharge Diagnoses: Discharge Instructions Discharge Instructions Follow up with: PMD Call MD/Return to Hospital if: fever, chills, cough, change in mental status Diet: soft Activity: resume normal activities, as tolerated Pneumonia Vaccine: pt rcvd vaccine prior to this visit Special Instructions I have been assigned to complete a D/C Summary on this account. I was not involved in the patient management Laurel Mackey NP ([facility]) Mar 10, 2016 14:48
--- NOTE | 2016-03-11 04:37 | Discharge Summary 2 SIG ---
DATE OF ADMISSION: 03/03/2016 DATE OF DISCHARGE: 03/08/2016 DISPOSITION: The patient was discharged home. CONDITION: Stable. DISCHARGE MEDICATIONS: See medication reconciliation list. REASON FOR HOSPITALIZATION AND ADMITTING ORDERS: This 80 years old female was brought by her daughter since she appeared to be more confused than usually. Daughter reported fever of 102 degrees at home. The patient has underlying history of dementia and hypertension. In the emergency department, the patient found to be hypertensive with pressure of 199/102 tachycardic, highest 132. Workup revealed leukocytosis of 18.7. Lactic acid was elevated 2.3. Urinalysis with evidence of UTI. Septic workup initiated and the patient transferred to telemetry for further management. HOSPITAL COURSE: patient initially admitted to telemetry floor. Infectious Diseases consult was requested. The patient was on antibiotics . Urine culture was positive for two different species of E. coli. Blood cultures were negative. Chest x-ray shows possible right base infiltrate. Repeated blood culture and urine culture both negative. No sputum culture was collected ( no phlegm, declined to induce).Leukocytosis resolved. Infectious Disease cleared the patient for discharge and recommended oral Keflex upon discharge. Abdominal ultrasound was negative for evidence of gallstone or dilated bile duct. Blood pressure was managed initially with IV Vasotec, after stabilized, the patient switched to oral lisinopril to continue upon discharge. Mental status improved to baseline. DISCHARGE DIAGNOSES: Include: 1. Acute toxic encephalopathy secondary to sepsis- resolved. 2. Sepsis. 3. Urinary tract infection. 4. Probable pneumonia. 5. Hypertensive urgency, resolved. 6. Dementia. DISCHARGE MEDICATIONS: see medications reconciliation list. DISCHARGE INSTRUCTIONS: follow up with primary care provider, Yina Huddleston M.D. I have been assigned to dictate discharge summary on this account and I was not involved in the patient's management. Laurel DuncanLenox Hill HospitalMaria Isabel N.P. DR: Martínez JOB#: [id number] CC: ROD
== END 2016-03-08 18:00 | disposition home or self-care (01) | DRG 720 ==
LOC: ENRESERVTM → ENRESERVDT → ENRESERV → EDBD 15:51 → EMR 16:52 → 2E 16:53 → EDBEDREQ 18:44 → 4E 03-04 13:43
DX: A41.9 Sepsis, unspecified organism (principal); G92 Toxic encephalopathy; J18.9 Pneumonia, unspecified organism; F03.90 Unspecified dementia, unspecified severity, without behavioral disturbance, psychotic disturbance, mood disturbance, and anxiety; I10 Essential (primary) hypertension; N39.0 Urinary tract infection, site not specified; I16.0 Hypertensive urgency; B96.20 Unspecified Escherichia coli [E. coli] as the cause of diseases classified elsewhere; R53.1 Weakness; Z88.1 Allergy status to other antibiotic agents
CPT/HCPCS: 36415; 71010; 76700; 80048; 80053; 81003; 82550; 82553; 82962; 83605; 83690; 83735; 83880; 84100; 84484; 85007; 85025; 85610; 85730; 87040; 87086; 87181; 93005; 94640; 94664; 94760; J7620; Q2036